=== PATIENT | female | born 1970 | race Two or more races ===

== ENCOUNTER → 2016-12-25 | Day surgery (SDC) | payer OTHER ==
--- NOTE | 2016-12-24 12:59 | TH ---
cc: GLORIA CASTILLO M.D. DATE: 12/25/2016 DATE OF : 1970 PROCEDURE TO BE PERFORMED Modified abdominoplasty. HISTORY OF PRESENT ILLNESS This is a 46-year-old female who is here interested in pursuing information in regards to a body contouring. She lost a lot of weight after gastric sleeve bypass in 2011. She then underwent an abdominoplasty in 2012 and still she has some loose skin in the lower abdomen with diastasis recti. PAST MEDICAL HISTORY Her past medical history is otherwise remarkable for: 1. Anemia. 2. Low vitamin D. 3. Arthritis. PSH8 Other surgical history significant for: 1. Cholecystectomy. 2. Two ectopic pregnancies. 3. Hiatal hernia. MEDICATIONS Medications include: 1. Vitamin C. 2. Prednisone. 3. Phentermine. 4. Calcium. 5. Xanax. 6. Hydroxyzine. ALLERGIES MORPHINE CREATES SIGNIFICANT NAUSEA. The patient is on a gluten-free diet, high-protein. REVIEW OF SYSTEMS Review of systems otherwise unremarkable. PHYSICAL EXAM CONSTITUTIONAL: General appearance. The patient is a well-developed female in no acute distress. Body habitus is within normal limits. There appear to be no deformities. Appears to have attention to grooming. HEENT: Eyes Conjunctivae and lids are within normal anatomical limits. The pupils are reactive to light and accommodation, size, and symmetry. There is no evidence of exudate, hemorrhage, or vessel change. Ears, mouth, nose, and throat The external inspection of the ears and nose fails to demonstrate any pathology, scars, lesions, or masses. Nasal mucosa, septum, and turbinates appear to be well hydrated as well as the lips and gums. No evidence of masses in the hypopharynx or submental area. RESPIRATORY: The patient shows no evidence of intercostal refractions. Otherwise, lungs are clear to auscultation without any abnormal sounds or rubs. CARDIOVASCULAR: The patient has a normal heart rate and rhythm. There is no evidence of noticed carotid bruits. Femoral pulses and pedal pulses in extremities are also within normal limits. GASTROINTESTINAL/ABDOMEN: Soft with no evidence of masses or tenderness. Unable to palpate the liver or spleen. No evidence of hernia. MUSCULOSKELETAL: Appears to be reasonable range of motion on the head, neck, spine, ribs, pelvis, right upper extremity, left upper extremity, right lower extremity, and left lower extremity. The muscle strength and tone appears to be equal and within accepted limits. SKIN: There is no rashes, lesions, or ulcers on the trunk, back, and extremities. NEUROLOGICAL: Examination is grossly normal. PSYCHIATRIC: The patient appears to have good orientation of time, place, and person. Does not appear to have any mood effects of depression, anxiety, or agitation. There is a little diastasis recti on the center of the abdomen, well-healed abdominoplasty incisions. PLAN Revision modified abdominoplasty with defatting of the mons and the risks and possible complications were discussed with the patient. MD RADHA Harley/ERNIE /11:50 AM /12:59 PM
[~2016-12-25] MED LIST: ACETAMINOPHEN 1000 MG/100 ML VIAL IV ONE; ACETAMINOPHEN/HYDROcodone 325 MG/5 MG TAB ONE; APREPITANT 40 MG CAP ONE; BUPIVACAINE/EPINEPHRINE 0.25% 50 ML VIAL ONE; KETOROLAC TROMETHAMINE 30 MG/ML (IVP) VIAL ONE; LACTATED RINGER'S 1,000 ML BAG IV ONE; LACTATED RINGER'S 1000 ML INJ 1,000 ML ONE; LIDOCAINE 1%/EPINEPHrine 1:100,000 SOLN 20 ML VIAL ONE; MEPERIDINE HCL 25 MG/ML VIAL ONE; MEPERIDINE HCL 50 MG/ML VIAL ONE; MIDAZOLAM HCL 2 MG/2 ML VIAL ONE; ONDANSETRON HCL 4 MG/2 ML VIAL IV PUSH ONE; PROPOFOL 100 MG/10 ML INJ IV ONE; ceFAZolin INJ 1,000 MG VIAL ONE
--- NOTE | 2016-12-25 12:31 | TN ---
cc: AMADOU HENAO M.D. DATE OF SURGERY 12/25/2016 PREOPERATIVE DIAGNOSIS Status post gastric bypass with further laxity. Status post abdominoplasty, again with further laxity. PROCEDURE Abdominoplasty. SURGEON Amadou Henao MD ANESTHESIA LMA, general. ESTIMATED BLOOD LOSS Minimal. COMPLICATIONS None. DRAINS None. PROCEDURE She was properly consented, marked, properly anesthetized, the skin sterilized with Betadine solution and sterile draping applied. Utilizing a 15 blade, the previous incision was reopened. I proceeded to perform the undermining all the way down to the costal margin and xiphoid. Plication of the rectus muscle was done utilizing multiple layers of 0 Prolene suture in interrupted fashion and running locking fashion. Defatting of the mons pubis was carried out and a fibro-d flap was created in order to enhance the labia majora at a minimum. With this, anchoring of the symphysis pubis was carried out down to the fascia of the muscle. In a semi-sitting position, we start quilting the abdominal wall down to the Sean's fascia area utilizing #2 Vicryls in single type of sutures in multiples all the way from the top to the bottom. Excess skin was removed with minimal tension. The wounds were closed utilizing 2-0 PDS to Sean's fascia, 2-0 Monocryl suture and Insorb to the dermis and skin. Prineo Dermabond was utilized to the skin and abdominal binder was applied thereafter. The umbilical scar was brought out in a new anatomical position and secured in place utilizing 3-0 Monocryl suture. Good viability of all the tissue was noted at the end of the case. The patient was awakened, extubated in the operating room and transported back to the postanesthesia care unit in stable condition. No complications appreciated. The patient tolerated the procedure fairly well. MD RADHA Harley/MARIAM /12:03 PM /12:23 PM
== END | disposition home or self-care (01) ==
LOC: ESDC 07:53
PROVIDERS: ATTEND Plastic Surgery
DX: Z41.1 Encounter for cosmetic surgery (principal)
CPT/HCPCS: 00400; 15830; 15847; J0131; J0690; J1885; J2175; J2250; J2405; J3010; J7120; J8501

== ENCOUNTER → 2017-05-25 | Day surgery (SDC) | payer OTHER ==
[~2017-05-25] MED LIST changes: +ACETAMINOPHEN 1000 MG/100 ML 100 ML IV ONE; -ACETAMINOPHEN 1000 MG/100 ML VIAL IV ONE; +BACITRACIN IM FOR SOLN 50,000 UNIT VIAL ONE; +BUPIVACAINE/EPINEPHRINE 0.5% 50 ML VIAL ONE; +GENTAMICIN SULFATE 80 MG/2 ML VIAL ONE; -KETOROLAC TROMETHAMINE 30 MG/ML (IVP) VIAL ONE; -LACTATED RINGER'S 1,000 ML BAG IV ONE; +LACTATED RINGER'S 1000 ML INJ 1,000 ML IV ONE; -LIDOCAINE 1%/EPINEPHrine 1:100,000 SOLN 20 ML VIAL ONE; +LIDOCAINE 1%/EPINEPHrine 1:200,000 PF SOLN 30 ML VIAL ONE; +NEOMYCIN/POLYMYXIN/BACITRACIN OINT 15 GM TUBE ONE; -PROPOFOL 100 MG/10 ML INJ IV ONE; +PROPOFOL 200 MG/20 ML AMP IV ONE; +SODIUM CHLORIDE 0.9% 20 ML VIAL ONE
--- NOTE | 2017-05-25 10:15 | TN ---
cc: AMADOU HENAO M.D. DATE OF SURGERY: 05/25/2017 PREOPERATIVE DIAGNOSIS Breast ptosis. PROCEDURE 1. Mastopexy. 2. Abdominoplasty revision including umbilicoplasty and excision of excess tissue lateral lower flanks. SURGEON Amadou Henao MD ANESTHESIA LMA general. Total of 30 ccs of 1% lidocaine with epinephrine. ESTIMATED BLOOD LOSS Minimal. COMPLICATIONS None. PROCEDURE After the patient was properly consented, marked, anesthetized, the skin was sterilized with Betadine solution and sterile draping applied. I proceeded and performed initially the excessive skin on the lateral flanks utilizing 15 blade and electrocautery. Closure was done in multiple layers including 2-0 Monocryl suture in the dermis, Sean's fascia dermis and subcu. The contralateral side was approached exactly in the same manner. The full length of both incisions was approximately 14-15. This was dressed with Prineo Dermabond and coverlet. Umbilicoplasty was done by excising the hypertrophic scar from it, releasing umbilical scar, released it and brought out into the now denuded area, anchored with 3-0 Monocryl suture and 5-0 fast-absorbing gut. Prineo Dermabond was utilized as well. Finally our attention was directed to the breast where the patient was sat up, tailor tack technique was utilized in order to address the laxity. This was properly marked. The skin was de-epithelialized and those wounds were closed in multiple layers including 2-0 Monocryl suture in the inverted T. The NAC was brought out in a new anatomical position utilizing 2-0 PTFE as well as 2-0 Quill. Absorbent dressings were applied. Good viability of tissue was noted at the end of the case. The patient was awakened, extubated in the operating room and transferred back to the postanesthesia care unit in stable condition. No complications were appreciated. The patient tolerated the procedure fairly well. MD RADHA Harley/ERNIE /9:40 AM /9:59 AM
== END | disposition home or self-care (01) ==
LOC: ESDC 06:22
PROVIDERS: ATTEND Plastic Surgery
DX: Z41.1 Encounter for cosmetic surgery (principal)
CPT/HCPCS: 00400; 00402; 13101; 19316; J0131; J0690; J1580; J2175; J2250; J2405; J3010; J7120; J8501